=== PATIENT | male | born 1955 | race Caucasian/White ===

== ENCOUNTER 2019-05-24 14:24 | Outpatient (CLI) | payer OTHER ==
[~2019-05-24] VITALS: Ht 175.3 cm; Wt 81.6 kg
[2019-05-24 14:50] VITALS: BP_SYST 79
[2019-05-24] MEDS ORDERED: FENTANYL1 EAC3 TDERMAL (15:53)
[2019-05-24] MEDS ORDERED: OXYCODONE HCL10 MG ORAL (15:53)
[2019-05-24] MEDS ORDERED: SUMATRIPTAN5 MG NS (15:53)
[2019-05-24] MEDS ORDERED: SUMATRIPTAN SUCC MC (15:53)
--- NOTE | 2019-06-15 17:15 | Consultation ---
DATE OF CONSULTATION: 05/24/2019 CONSULTING PHYSICIAN: Akbar Tenorio M.D. CHIEF COMPLAINT: Referral for screening colonoscopy and chronic GERD. HISTORY OF PRESENT ILLNESS: This is a very pleasant 64-year-old male with history of migraine headaches, history of neck pain, was referred to us for screening colonoscopy. The patient also complained of chronic GERD. PAST MEDICAL HISTORY: Migraine headaches and neck pain. PAST SURGICAL HISTORY: Left ankle surgery. MEDICATIONS: He is on oxycodone, ibuprofen, and sumatriptan. FAMILY HISTORY: No family history of GI malignancies. SOCIAL HISTORY: The patient denies any tobacco, alcohol, or drug abuse. ALLERGIES: Allergy to no medication. He is allergic to bee stings. REVIEW OF SYSTEMS: A 10-point review of systems was performed and is positive for abdominal pain, GERD, constipation, and rectal bleeding. PHYSICAL EXAMINATION: VITAL SIGNS: Temperature 97.6, blood pressure 116/79, pulse 78, and respirations 20. HEENT: Normocephalic and atraumatic. No scleral icterus. NECK: Supple. No obvious evidence of lymphadenopathy. CARDIOVASCULAR: Regular rate and rhythm. Plus S1 and S2. No obvious murmur. LUNGS: Clear to auscultation bilaterally. ABDOMEN: Positive bowel sounds. Soft and nontender. No rebound. No guarding. No peritoneal sign. EXTREMITIES: No cyanosis, no clubbing, no edema. ASSESSMENT AND PLAN: This is a 64-year-old male with need for screening colonoscopy given his age over 50. Also, he has some rectal bleeding. The patient has also chronic GERD, which needs endoscopy. The patient was informed of the risks and benefits of the procedure. He was given a prescription for colonoscopy. We are going to schedule him pending authorization. Akbar Tenorio M.D. DR: ADITHYA JOB#: [id number] CC:
== END 2019-05-24 15:41 | disposition home or self-care (01) ==
LOC: PAN 14:24
DX: K21.9 Gastro-esophageal reflux disease without esophagitis (principal); Z88.6 Allergy status to analgesic agent; R10.9 Unspecified abdominal pain; K59.00 Constipation, unspecified; K62.5 Hemorrhage of anus and rectum
CPT/HCPCS: 99202